=== PATIENT | female | born 1985 | race Caucasian/White ===

== ENCOUNTER 2020-10-22 17:10 | Emergency (ER) | payer OTHER | END 2020-10-22 21:00 | disposition home or self-care (01) | LOC: ER1 17:10 | DX: S92.521A Displaced fracture of middle phalanx of right lesser toe(s), initial encounter for closed fracture (principal); W22.8XXA Striking against or struck by other objects, initial encounter; Y92.009 Unspecified place in unspecified non-institutional (private) residence as the place of occurrence of the external cause | CPT/HCPCS: 73630; 99283 ==

== ENCOUNTER 2020-12-10 18:21 | Emergency (ER) | payer OTHER ==
[2020-12-10 20:25] LABS: HEMOGLOBIN 13.9 gm/dl (12.3-15.3); RED BLOOD COUNT 4.79 M/UL (4.00-5.10); WHITE BLOOD COUNT 6.5 K/UL (4.5-11.0)
[2020-12-10 21:26] LABS: BUN/CREATININE RATIO 16 (0-10)
[2020-12-10] MEDS ORDERED: LODINE CAP 300300 MG PO (21:33)
[2020-12-10] MEDS ORDERED: VENTOLIN HFA 66.7 GM INH (21:33)
== END 2020-12-10 21:35 | disposition home or self-care (01) ==
LOC: ER1 18:21
PROVIDERS: Physician Assistant
DX: J06.9 Acute upper respiratory infection, unspecified (principal); R53.83 Other fatigue; E03.9 Hypothyroidism, unspecified; Z20.822 Contact with and (suspected) exposure to COVID-19
CPT/HCPCS: 0240U; 71045; 80053; 83880; 85025; 85379; 85610; 85730; 99285

== ENCOUNTER 2021-12-01 12:38 | Inpatient (IN) | payer BC, OTHER ==
[~2021-12-01] VITALS: Ht 177.8 cm; Wt 89.4 kg
[~2021-12-01 12:38] MED LIST: LODINE CAP 300300 MG PO; VENTOLIN HFA 66.7 GM INH
[2021-12-01 13:22] LABS: RED BLOOD COUNT 4.56 M/UL (4.00-5.10); WHITE BLOOD COUNT 7.5 K/UL (4.5-11.0)
[2021-12-01 13:43] LABS: BUN/CREATININE RATIO 13 (0-10)
[2021-12-01] MEDS ORDERED: LEVOTHYROXINE25 MCG PO (23:21)
[2021-12-01] MEDS ORDERED: DULOXETINE HCL60 MG PO (23:21)
[2021-12-02] MEDS ORDERED: DULCOLAX5 MG PO (01:10)
[2021-12-02] MEDS ORDERED: TYLENOL EXTRA500 MG PO (01:11)
[2021-12-02] MEDS ORDERED: MOTRIN IB200 M1 PO (01:13)
[2021-12-02 06:18] LABS: HEMOGLOBIN 11.6 gm/dl (12.3-15.3); WHITE BLOOD COUNT 6.9 K/UL (4.5-11.0)
[2021-12-02 06:20] LABS: RED BLOOD COUNT 4.07 M/UL (4.00-5.10)
[2021-12-02 06:56] LABS: BUN/CREATININE RATIO 7 (0-10)
[2021-12-04 10:18] LABS: HEMOGLOBIN 12.3 gm/dl (12.3-15.3); RED BLOOD COUNT 4.34 M/UL (4.00-5.10); WHITE BLOOD COUNT 5.4 K/UL (4.5-11.0)
[2021-12-04 10:41] LABS: BUN/CREATININE RATIO 11 (0-10)
[2021-12-04] MEDS ORDERED: POLYETHYLENE GL17 GM PO (16:57)
[2021-12-04] MEDS ORDERED: HYDROCODON-ACE1 EAC2 PO (16:57)
[2021-12-05 08:16] LABS: CANCER ANTIGEN (CA) 125 12.8 U/mL (0.0-38.1); CEA 1.5 ng/mL (0.0-4.7)
== END 2021-12-04 18:32 | disposition home or self-care (01) | DRG 760 ==
LOC: ER1 12:38 → M/S 21:14 → CDU 21:14 → M/S 23:04
PROVIDERS: Internal Medicine; Obstetrics & Gynecology; Physician Assistant; ADMIT Internal Medicine
DX: N85.8 Other specified noninflammatory disorders of uterus (principal); E87.2 Acidosis; N91.1 Secondary amenorrhea; K59.09 Other constipation; F41.9 Anxiety disorder, unspecified; R00.0 Tachycardia, unspecified; F32.A Depression, unspecified; E03.9 Hypothyroidism, unspecified; Z98.890 Other specified postprocedural states; Z82.49 Family history of ischemic heart disease and other diseases of the circulatory system; Z83.3 Family history of diabetes mellitus
CPT/HCPCS: 36415; 72197; 76830; 80053; 81001; 82105; 82378; 83605; 83615; 83690; 83735; 84443; 84702; 84703; 85025; 86301; 86304; 86336; 87040; 96374; 96375; 96376; 99285; A9577; J0696; J1885; J2270; J2405; J7030; Q9967

== ENCOUNTER 2022-02-18 13:37 | Emergency (ER) | payer BC ==
[~2022-02-18 13:37] MED LIST changes: +DULCOLAX5 MG PO; +DULOXETINE HCL60 MG PO; +HYDROCODON-ACE1 EAC2 PO; +LEVOTHYROXINE25 MCG PO; +MOTRIN IB200 M1 PO; +POLYETHYLENE GL17 GM PO; +TYLENOL EXTRA500 MG PO
[2022-02-18 14:25] LABS: HEMOGLOBIN 12.5 gm/dl (12.3-15.3); RED BLOOD COUNT 4.38 M/UL (4.00-5.10); WHITE BLOOD COUNT 5.8 K/UL (4.5-11.0)
[2022-02-18 14:44] LABS: BUN/CREATININE RATIO 18 (0-10)
== END 2022-02-18 20:30 | disposition home or self-care (01) ==
LOC: ER1 13:37
PROVIDERS: Family Medicine
DX: R07.89 Other chest pain (principal); Z20.822 Contact with and (suspected) exposure to COVID-19
CPT/HCPCS: 71045; 80053; 82550; 82553; 84439; 84443; 84484; 85025; 85379; 93005; 96374; 99285; J1885; Q9967; U0002